=== PATIENT | male | born 2000 | race American Indian/Alaskan Native ===

== ENCOUNTER 2019-08-13 19:51 | Emergency (ER) | payer SELFPAY ==
--- NOTE | 2019-08-13 20:01 | Event Note ---
ED Screening Note Date of service: 08/13/19 Time: 19:57 ED Screening Note: This is a 19 y.o. M. that presents to the ER with headache, seizure, and vomiting. Patient states initially it felt like he ate something bad and start sweating profusely. Mom states her son was at her sister house and told he was out for a few minutes after convulsing on the floor. Current smoker Denies taking anything today. This initial assessment/diagnostic orders/clinical plan/treatment(s) is/are subject to change based on patients health status, clinical progression and re- assessment by fellow clinical providers in the ED. Further treatment and workup at subsequent clinical providers discretion. Patient/guardian urged not to elope from the ED as their condition may be serious if not clinically assessed and managed. Initial orders include: Labs and CT of head Seizure precaution
--- NOTE | 2019-08-13 20:46 | Cat Scan Report ---
CT head/brain wo con INDICATION: Headache, syncope. TECHNIQUE: Routine CT head without contrast. All CT scans at this location are performed using CT dos e reduction for ALARA by means of automated exposure control. COMPARISON: None. FINDINGS: BRAIN / INTRACRANIAL CONTENTS: No acute hemorrhage, mass effect, midline shift, or hydrocephalus. No appreciable acute large territorial or lacunar infarct. No chronic infarct or focal atrophy. Normal b rain volume and ventricular/sulcal size for age. ORBITS: No significant abnormality of visualized orbits. SINUSES / MASTOIDS: No significant abnormality of visualized sinuses and mastoid air cells. ADDITIONAL FINDINGS: None. IMPRESSION: 1. Negative head CT. Signer Name: Ramón Conley MD Signed: 08/13/2019 8:42 PM Workstation Name: [id number].
[2019-08-13 21:15] LABS: Hematocrit 47.6 % (35.5-45.6); Hemoglobin 15.9 gm/dl (11.8-15.2); Mean Corpuscular HGB Conc 33 % (32-34); Mean Corpuscular Volume 96 fl (84-94); Platelet Count 201 K/mm3 (140-440); Red Blood Count 4.99 M/mm3 (3.65-5.03); Red Cell Distribution Width 13.3 % (13.2-15.2)
[2019-08-13 21:28] LABS: BUN/Creatinine Ratio 18; Blood Urea Nitrogen 20 mg/dL (9-20); Calcium 10.1 mg/dL (8.4-10.2); Hemolysis Index 35
--- NOTE | 2019-08-13 21:41 | Emergency Department Report ---
ED Seizure HPI - General Chief Complaint: Seizure Stated Complaint: HEADACHE, SWEATINFG, SEIZURE Time Seen by Provider: 08/13/19 19:57 Source: patient Mode of arrival: Wheelchair Limitations: No Limitations - History of Present Illness Initial Comments: 19-year-old male presents to ED following seizure at home. Patient's aunt states patient initially began to feel nauseated, then began to sweat profusely. States he then had a tonic-clonic seizure for approximately 30-40 seconds. She reports patient was unresponsive and postictal afterward. The aunt states she does recognize seizure activity because her daughter has a history of seizures. Patient reports a similar episode 6 months ago in which she had a seizure, but thought that it may have been related to mixing alcohol and the trazodone that he was taking at the time for insomnia. Patient is no longer on the trazodone. States he did not receive medical attention at that time. Patient is not currently on any seizure medications. Patient reports headache after regaining consciousness, however states that headache has resolved at this time. Patient reports marijuana use. Denies alcohol use. MD Complaint: seizure -: This evening Description of Episode: loss of consciousness, tonic-clonic movement, post-event confusion -: second(s) (40) Witnessed:: Yes Trauma: No Seizure History: other (first seizure was 6 mos ago) Place: home Possible Precipitating Event: none Associated Symptoms: denies: chest pain, cough, fever/chills, tongue injury, shoulder dislocation Treatments Prior to Arrival: none - Related Data Previous Rx's Medication Instructions Recorded Last Taken Type levETIRAcetam [Keppra TAB] 500 mg PO BID #60 tablet 08/13/19 Unknown Rx Allergies Allergy/AdvReac Type Severity Reaction Status Date / Time No Known Allergies Allergy Verified 08/13/19 19:55 ED Review of Systems ROS: Stated complaint: HEADACHE, SWEATINFG, SEIZURE Other details as noted in HPI Comment: All other systems reviewed and negative Constitutional: denies: chills, fever Respiratory: denies: cough Cardiovascular: denies: chest pain Gastrointestinal: nausea Neurological: headache. denies: weakness, numbness, paresthesias ED Past Medical Hx - Past Medical History Previous Medical History?: No - Surgical History Past Surgical History?: No - Social History Smoking Status: Current Every Day Smoker Substance Use Type: None, Marijuana - Medications Home Medications: Home Medications Medication Instructions Recorded Confirmed Last Taken Type levETIRAcetam [Keppra TAB] 500 mg PO BID #60 tablet 08/13/19 Unknown Rx ED Physical Exam - General Limitations: No Limitations General appearance: alert, in no apparent distress - Head Head exam: Present: atraumatic, normocephalic - Eye Eye exam: Present: normal appearance, PERRL, EOMI - ENT ENT exam: Present: mucous membranes moist - Neck Neck exam: Present: normal inspection, full ROM - Respiratory Respiratory exam: Present: normal lung sounds bilaterally. Absent: respiratory distress - Cardiovascular Cardiovascular Exam: Present: regular rate, normal rhythm - GI/Abdominal GI/Abdominal exam: Present: soft. Absent: distended, tenderness - Extremities Exam Extremities exam: Present: normal inspection - Neurological Exam Neurological exam: Present: alert, oriented X3, CN II-XII intact. Absent: motor sensory deficit - Psychiatric Psychiatric exam: Present: normal affect, normal mood - Skin Skin exam: Present: warm, dry, intact, normal color ED Course Vital Signs 08/13/19 08/13/19 19:55 21:20 Temperature 97.8 F 97.9 F Pulse Rate 80 67 Respiratory 18 15 Rate Blood Pressure 104/64 107/52 Blood Pressure 107/52 [Left] O2 Sat by Pulse 100 100 Oximetry ED Medical Decision Making - Lab Data Result diagrams: 08/13/19 20:24 08/13/19 20:24 - Radiology Data Radiology results: report reviewed, image reviewed - Medical Decision Making No seizure activity in the ED. Neuro exam is normal and nonfocal. CT head normal, labs unremarkable. Keppra given here in the ED. Advised to follow up with outpatient neurology. Family at bedside, patient advised against driving or operating heavy machinery until he is cleared by a neurologist. Will discharge at this time with prescription for Keppra. Return precautions given. - Differential Diagnosis seizure Critical care attestation.: If time is entered above; I have spent that time in minutes in the direct care of this critically ill patient, excluding procedure time. ED Disposition Clinical Impression: Seizure Disposition: DC-01 TO HOME OR SELFCARE Is pt being admited?: No Condition: Stable Instructions: New-Onset Seizure in Adults (ED) Prescriptions: levETIRAcetam [Keppra TAB] 500 mg PO BID #60 tablet Referrals: PRIMARY CARE, [Referring] - 3-5 Days LOTUS HOFF MD [Referring] - 3-5 Days [facility] [Provider Group] - 3-5 Days Time of Disposition: 22:28
[2019-08-13] MEDS ORDERED: levETIRAcetam 500 MG TAB PO ONE (21:43)
[2019-08-13 23:15] VITALS: BP 104/57
== END 2019-08-13 22:55 | disposition home or self-care (01) ==
LOC: ED 19:51
DX: R56.9 Unspecified convulsions (principal); R11.0 Nausea; F17.200 Nicotine dependence, unspecified, uncomplicated; F12.10 Cannabis abuse, uncomplicated
CPT/HCPCS: 36415; 70450; 80048; 82962; 85027